=== PATIENT | male | born 1960 | race American Indian/Alaskan Native ===

== ENCOUNTER 2018-05-30 03:33 | Emergency (ER) | payer MEDICARE ==
[2018-05-30 03:42] VITALS: BP 118/79; PULSE 60; RESP 18; TEMP 97.7; O2SAT 97
[2018-05-30] MEDS ORDERED: Tetanus/Diphtheria Toxoids 0.5 ml Syringe IM ONE ×2 (03:49→03:55)
--- NOTE | 2018-05-30 03:52 | C.PDOC ---
History Of Present Illness 57 year old male presents to the ED requesting a tetanus shot. Patient states he accidentally stepped on a mouse caught in a trap while in his home today [employer]. Patient reports he was bitten on his left foot. Patient denies fever, chills, rash, weakness, numbness. Time Seen by Provider: 05/30/18 03:45 Chief Complaint (Nursing): Bite History Per: Patient History/Exam Limitations: no limitations Onset/Duration Of Symptoms: Hrs Current Symptoms Are (Timing): Still Present Location Of Injury: Left: Foot Recent travel outside of the [place]: No Additional History Per: Patient Past Medical History Reviewed: Historical Data, Nursing Documentation, Vital Signs Vital Signs: Last Vital Signs Temp 97.7 F 05/30/18 03:36 Pulse 60 05/30/18 03:36 Resp 18 05/30/18 03:36 BP 118/79 05/30/18 03:36 Pulse Ox 97 05/30/18 03:36 - Medical History PMH: No Chronic Diseases Surgical History: No Surg Hx Family History: States: Unknown Family Hx - Social History Hx Alcohol Use: No Hx Substance Use: No - Immunization History Hx Tetanus Toxoid Vaccination: No Hx Influenza Vaccination: Yes Hx Pneumococcal Vaccination: No Review Of Systems Constitutional: Negative for: Fever, Chills Respiratory: Negative for: Cough, Shortness of Breath Gastrointestinal: Negative for: Nausea, Vomiting Musculoskeletal: Negative for: Leg Pain, Foot Pain Skin: Positive for: Rash Neurological: Negative for: Weakness, Numbness Physical Exam - Physical Exam Appears: Non-toxic, No Acute Distress Skin: Normal Color, Warm, Dry Head: Atraumatic, Normacephalic Eye(s): bilateral: Normal Inspection Extremity: Normal ROM, No Tenderness, Capillary Refill (< 2 seconds), No Swelling, Other (left foot no erythema, swelling, open wounds) Pulses: Left Dorsalis Pedis: Normal, Right Dorsalis Pedis: Normal Neurological/Psych: Oriented x3, Normal Speech, Normal Motor, Normal Sensation Gait: Steady ED Course And Treatment O2 Sat by Pulse Oximetry: 97 (ON RA) Pulse Ox Interpretation: Normal Progress Note: Plan: - Tetanus immunization given. Patient was reassured, educated on proper wound care. Patient was also advised to follow up with PMD/clinic. Disposition Counseled Patient/Family Regarding: Diagnosis, Need For Followup - Disposition Referrals: Sarah Dhillon APN-C [Non-Staff] - Disposition: HOME/ ROUTINE Disposition Time: 03:52 Condition: GOOD Additional Instructions: Please follow up with PMD Return to ER if any concerns Instructions: Animal Bite (ED) Forms: [employer] ([place]) - Clinical Impression Clinical Impression: Bitten by mouse, initial encounter - PA / GANG INVESTIGATOR / Resident Statement MD/DO has reviewed & agrees with the documentation as recorded. - Scribe Statement The provider has reviewed the documentation as recorded by the Scribe Terrence Turner All medical record entries made by the Scribe were at my direction and personally dictated by me. I have reviewed the chart and agree that the record accurately reflects my personal performance of the history, physical exam, medical decision making, and the department course for this patient. I have also personally directed, reviewed, and agree with the discharge instructions and disposition.
== END 2018-05-30 04:04 | disposition home or self-care (01) ==
LOC: C.ER 03:33
DX: S91.352A Open bite, left foot, initial encounter (principal); W53.01XA Bitten by mouse, initial encounter